=== PATIENT | male | born 1945 | race Caucasian/White ===

== ENCOUNTER 2024-04-27 18:39 | Inpatient (IN) ==
[2024-04-27 21:14] LABS: ABS Lymphocytes 0.3 10^3/uL (1.0-4.8); ABS Monocytes 0.1 10^3/uL (0.0-1.1); ABS Neutrophils 5.6 10^3/uL (1.5-7.6); Hematocrit 37.2 % (38-53); Hemoglobin 12.6 g/dL (13.2-16.3); Lymphocyte % 5.5 %; Mean Corpuscular Hemoglobin 32.8 pg (27-33); Mean Corpuscular Volume 96.5 fL (80-97); Mean Platelet Volume 7.6 fL (7.5-11.2); Nucleated Red Blood Cells % 0.1 %/100WBC (0.0-0.8); Platelet Count 215 10^3/uL (150-450); Red Blood Count 3.85 10^6/uL (4.06-5.63); Red Cell Distribution Width 15.1 % (12-17); White Blood Count 6.1 10^3/uL (3.6-10.2)
[2024-04-28] MEDS: Albuterol/Ipratropium NEB.SOL (2.5/0.5 MG) 3 ML NEB.SOLN INH SCH (00:53)
[2024-04-28 00:56] LABS: Albumin 3.8 g/dL (3.5-5.7); Albumin/Globulin Ratio 1.7 (1-3); Calcium 9.1 mg/dL (8.6-10.3); Creatinine, Serum 1.69 mg/dL (0.67-1.17); Globulin 2.2 g/dL (2-4); Potassium 3.7 mmol/L (3.5-5.0); Total Bilirubin 0.6 mg/dL (0.2-1.0); eGFR CKD-EPI 40.5 (>60)
[2024-04-28] MEDS: CMCS: Ranolazine 500 mg TAB ER (NF) PO SCH (09:57)
[2024-04-28] MEDS: THEOPHYLLINE PO SCH (09:58)
[2024-04-28 10:44] LABS: Creatinine, Serum 1.47 mg/dL (0.67-1.17); Potassium 3.5 mmol/L (3.5-5.0)
[2024-04-28 10:45] LABS: Calcium 9.2 mg/dL (8.6-10.3); eGFR CKD-EPI 47.9 (>60)
[2024-04-28] MEDS: Sulfur Hexaflouride MICROSPHR 25 MG VIAL IV PRN (11:11)
[2024-04-28] MEDS: Lactated Ringers 1000 ml BAG 500 ML IV ONE (11:17)
[2024-04-28] MEDS: Levalbuterol 1.25MG/0.5ML NEB.SOL ONE (11:59)
[2024-04-28] MEDS: Levalbuterol 0.63MG/3ML NEB UNIT OF USE INH ONE (12:00)
[2024-04-28 12:05] LABS: PCO2 Arterial 58 mmHg (35-45); PO2 Arterial 160 mmHg (80-100)
[2024-04-28 12:27] LABS: Urine Appearance Clear; Urine Bilirubin Negative (Negative); Urine Blood 1+ (Negative); Urine Color Yellow; Urine Glucose 1+ (>=70 mg/dL) (Negative); Urine Ketones Negative (Negative); Urine Nitrite Negative (Negative); Urine Protein Trace (Negative); Urine Specific Gravity 1.024 (1.002-1.030); Urine Urobilinogen Negative (Negative); Urine pH 5.5 (5.0-8.0)
[2024-04-28 12:35] LABS: Urine Bacteria Absent /HPF (Absent); Urine Red Blood Cell 3+(>10/hpf) /HPF (0-Trace); Urine Squamous Epithelial Cell Present /HPF (Absent); Urine White Blood Cell 1+(6-10/hpf) /HPF (0-Trace)
[2024-04-28] MEDS: Furosemide 20 mg/2 ml IV VIAL IV ONE (13:23)
[2024-04-28] MEDS: KCL 20 MEQ/100 ML IVPREMIX 20 MEQ/100 ML BAG IV SCH (13:31)
[2024-04-28] MEDS ORDERED: Enoxaparin 40 MG/0.4 ML SYR SUBCUT SCH (18:00)
[2024-04-28] MEDS: Potassium Chlor 20 meq TAB.ER PO ONE (19:53)
[2024-04-28] MEDS: Morphine 2 MG/ML SYRINGE IV PRN (21:56)
[2024-04-29 00:34] LABS: Magnesium 1.7 mg/dL (1.9-2.7)
[2024-04-29 00:36] LABS: Magnesium 1.7 mg/dL (1.9-2.7)
[2024-04-29] MEDS: Magnesium Sulfate 2 gm BAG 2 GM/50 ML BAG IVPB ONE (00:57)
[2024-04-29] MEDS: KCL 20 MEQ/100 ML IVPREMIX 20 MEQ/100 ML BAG IV ONE (00:57)
[2024-04-29] MEDS: Levalbuterol 0.63MG/3ML NEB UNIT OF USE INH PRN (04:50)
[2024-04-29 04:58] LABS: ABS Lymphocytes 0.5 10^3/uL (1.0-4.8); ABS Monocytes 0.4 10^3/uL (0.0-1.1); Hematocrit 38.5 % (38-53); Hemoglobin 12.9 g/dL (13.2-16.3); Lymphocyte % 3.5 %; Mean Corpuscular Hemoglobin 32.4 pg (27-33); Mean Corpuscular Hgb Conc 33.4 g/dL (31-36); Mean Corpuscular Volume 96.9 fL (80-97); Mean Platelet Volume 7.7 fL (7.5-11.2); Platelet Count 208 10^3/uL (150-450); Red Blood Count 3.97 10^6/uL (4.06-5.63); Red Cell Distribution Width 15.8 % (12-17); White Blood Count 13.9 10^3/uL (3.6-10.2)
[2024-04-29] MEDS: Morphine 2 MG/ML SYRINGE ONE (05:16)
[2024-04-29 05:54] LABS: Anion Gap 8 mmol/L (2-16); Blood Urea Nitrogen 34 mg/dL (6-24); CO2 Carbon Dioxide 26 mmol/L (22-32); Calcium 8.9 mg/dL (8.6-10.3); Chloride 99 mmol/L (101-111); Creatinine, Serum 1.13 mg/dL (0.67-1.17); Glucose 158 mg/dL (70-100); Magnesium 2.4 mg/dL (1.9-2.7); Sodium 133 mmol/L (135-145); eGFR CKD-EPI 65.7 (>60)
[2024-04-29 07:19] LABS: Potassium, Whole Blood 5.3 mmol/L (3.4-4.5)
[2024-04-29] MEDS: NS 0.9% 500 ml BAG 500 ML IV SCH (11:33)
[2024-04-29] MEDS: PHENYLEPHRINE DRIP IVPREMIX 50 MG/250 ML BAG IV SCH (12:18)
[2024-04-29] MEDS: Phenylephrine DRIP 0.2 MG/ML in NS 0.9% 250 ML (PHA mix) IV SCH (12:38)
[2024-04-29] MEDS: Morphine 2 MG/ML SYRINGE IV PRN (13:33)
[2024-04-29] MEDS: Metoprolol Tartrate 5 mg VIAL 5 ml VIAL (1 mg/ml) IV ONE (13:36)
[2024-04-29] MEDS: Metoprolol Tartrate 5 mg VIAL 5 ml VIAL (1 mg/ml) ONE (13:49)
[2024-04-29] MEDS: Esmolol 10 MG/ML IVPREMIX 2,500 MG/250 ML BAG IV SCH (13:54)
[2024-04-29] MEDS: Morphine 2 MG/ML SYRINGE IV ONE (15:15)
[2024-04-29 15:16] VITALS: BP 24/16
[2024-04-29] MEDS: Norepinephrine 4 MG/250mL D5W 4,000 MCG/250 ML BAG IV SCH (15:59)
[2024-04-29] MEDS: Norepinephrine 4 MG/250mL D5W 4,000 MCG/250 ML BAG IV ONE (17:05)
[2024-04-29] MEDS ORDERED: .Amiodarone 24HR ONLY IV Protocol Order Note IV ONE (21:37)
[2024-04-29] MEDS ORDERED: Amiodarone 360 MG IVPREMIX 360 MG/200 ML BAG IV SCH (21:40)
[2024-04-29] MEDS: Amiodarone 150 mg IVPREMIX 150 MG/100 ML BAG IV ONE (21:44)
[2024-04-29] MEDS ORDERED: Phenylephrine 40 mcg/mL 10mL (400mcg) SYRINGE ONE (21:56)
[2024-04-29] MEDS ORDERED: PHENYLEPHRINE DRIP IVPREMIX 50 MG/250 ML BAG IV SCH (22:05)
[2024-04-29] MEDS ORDERED: Morphine 4 MG/ML VIAL (1 ml) ONE (22:11)
[2024-04-30] MEDS ORDERED: Amiodarone 360 MG IVPREMIX 360 MG/200 ML BAG IV SCH (03:40)
== END 2024-04-29 22:14 | disposition expired | DRG 306 ==
LOC: ED 18:39 → EDHOLD 18:39 → SUATTDRO 19:23 → MED 22:21 → ICU 04-28 14:22
PROVIDERS: ADMIT Student in an Organized Health Care Education/Training Program; ATTEND Student in an Organized Health Care Education/Training Program